=== PATIENT | male | born 1990 | race Caucasian/White ===

== ENCOUNTER 2016-11-22 07:20 | Emergency (ER) | payer SELFPAY ==
[~2016-11-22 07:20] MED LIST: Z.0.NO CURRENT MEDS
[2016-11-22 07:23] VITALS: BP 132/78; PULSE 125; RESP 18; TEMP 98.7; O2SAT 100
--- NOTE | 2016-11-22 08:02 | PD ---
HPI Chief Complaint: Pain: Acute or Chronic Time Seen by Provider: 07:39 Travel History International Travel<30 days: No Contact w/Intl Traveler<30days: No Traveled to known affect area: No History of Present Illness HPI 26-year-old male complains of left-sided chest pain, left arm pain and left leg pain left-sided abdominal pain. Patient states that the symptoms started last night. Patient working outside daily. Patient states that he has been eating drinking normally. Patient denies any recent fall the left side. Patient states the pain is sharp pain localized to left side of body. Patient denies any pain radiation. Patient states that left-sided chest pain is worse with deep breathing. Patient denies any coughing congestion fever chills. PFSH Past Medical History Medical History: Denies Significant Hx Diminished Hearing: No Tetanus Vaccination: Unknown Influenza Vaccination: No Past Surgical History Other Surgery: Yes (FACIAL PLASTIC SURGERY) Social History Alcohol Use: No Tobacco Use: Yes (1/2 PK PER DAY) Substance Use: No Allergies-Medications (Allergen,Severity, Reaction): Coded Allergies: iodine (Unverified Allergy, Severe, ANAPHYLAXIS, 11/22/16) potassium iodide (Unverified Allergy, Severe, ANAPHYLAXIS, 11/22/16) povidone-iodine (Unverified Allergy, Severe, ANAPHYLAXIS, 11/22/16) sodium iodide (Unverified Allergy, Severe, ANAPHYLAXIS, 11/22/16) sodium iodide (Unverified Allergy, Severe, ANAPHYLAXIS, 11/22/16) Reported Meds & Prescriptions Reported Meds & Active Scripts Active No Active Prescriptions or Reported Medications Review of Systems General / Constitutional: No: Fever Eyes: No: Visual changes HENT: No: Headaches Cardiovascular: Positive: Chest Pain or Discomfort Respiratory: No: Shortness of Breath Gastrointestinal: No: Abdominal Pain Genitourinary: No: Dysuria Musculoskeletal: Positive: Pain Skin: No Rash Neurologic: No: Weakness Psychiatric: No: Depression Endocrine: No: Polydipsia Hematologic/Lymphatic: No: Easy Bruising Physical Exam Narrative GENERAL: Well-nourished, well-developed patient. SKIN: Focused skin assessment warm/dry. HEAD: Normocephalic. EYES: No scleral icterus. No injection or drainage. NECK: Supple, trachea midline. No JVD or lymphadenopathy. CARDIOVASCULAR: Regular rate and rhythm without murmurs, gallops, or rubs. RESPIRATORY: Breath sounds equal bilaterally. No accessory muscle use. GASTROINTESTINAL: Abdomen soft, non-tender, nondistended. MUSCULOSKELETAL: Patient has mild diffuse tenderness over the left shoulder pad , left shoulder joint, left arm, left-sided chest wall, abdominal wall, left hip left thigh. Full range of motion all extremity. No obvious rash noted. No redness no swelling no deformity noted. BACK: Nontender without obvious deformity. No CVA tenderness. Neurologic exam normal. Data Data Last Documented VS Vital Signs Date Time Temp Pulse Resp B/P (MAP) Pulse Ox O2 Delivery O2 Flow Rate FiO2 11/22/16 07:23 98.7 125 18 132/78 (96) 100 Orders Orders Chest, Single Ap (11/22/16 07:51) Electrocardiogram (11/22/16 ) [facility] Medical Decision Making Medical Screen Exam Complete: Yes Emergency Medical Condition: Yes Interpretation(s) 08 56 AM. Chest x-ray shows no acute cardiopulmonary process. EKG shows sinus tachycardia. Rate 1:15. Incomplete right bundle branch block. Nonspecific ST- T wave change. Differential Diagnosis Differential diagnosis including dehydration, electrolyte mildly, muscular strain, rhabdomyolysis. Narrative Course 26-year-old male with left-sided body pain. Patient's working outside daily. Patient refused blood tests or IV fluid. Patient's tachycardic most likely dehydrated with possible electrolyte abnormality. Diagnosis Primary Impression: Heat cramps Qualified Codes: T67.2XXA - Heat cramp, initial encounter Patient Instructions: General Instructions Additional Instructions: Tylenol for pain. Encouraged by mouth fluids and rest. Follow-up with personal physician. Return if persistent problem or worse. Med/Other Pt SpecificInfo: No Meds Exist/No RX given Scripts No Active Prescriptions or Reported Meds Disposition: 01 DISCHARGE HOME Condition: Stable Chano Sutherland MD Nov 22, 2016 08:02
--- NOTE | 2016-11-22 08:52 | RADRPT ---
EXAM DATE/TIME: 11/22/2016 08:16 [facility] COMPARISON: No previous studies available for comparison. INDICATIONS : Chest pain. MEDICAL HISTORY : None. SURGICAL HISTORY : None. ENCOUNTER: Initial ACUITY: 1 day PAIN SCORE: 10/10 LOCATION: Left chest FINDINGS: A single view of the chest demonstrates the lungs to be symmetrically aerated without evidence of mas s, infiltrate or effusion. The cardiomediastinal contours are unremarkable. Osseous structures are intact. CONCLUSION: No acute disease. Nigel Mojica MD on November 22, 2016 at 8:50 Board Certified Radiologist. This report was verified electronically.
--- NOTE | 2016-11-22 13:10 | EKG ---
Date Performed: 11/22/2016 Time Performed: 07:59:09 PTAGE: 26 years EKG: SINUS TACHYCARDIA POSSIBLE LEFT ATRIAL ENLARGEMENT INCOMPLETE RIGHT BUNDLE BRANCH BLOCK SEP REENA MYOCARDIAL INFARCTION ABNORMAL ECG NO PREVIOUS TRACING DOCTOR: Kellie Mcrae Interpretating Date/Time 11/22/2016 13:08:07
== END 2016-11-22 09:13 | disposition home or self-care (01) ==
LOC: NEPE 07:20
DX: T67.2XXA Heat cramp, initial encounter (principal); R07.9 Chest pain, unspecified; M79.602 Pain in left arm; M79.605 Pain in left leg; R00.0 Tachycardia, unspecified; I45.10 Unspecified right bundle-branch block; R94.31 Abnormal electrocardiogram [ECG] [EKG]; F17.200 Nicotine dependence, unspecified, uncomplicated; X30.XXXA Exposure to excessive natural heat, initial encounter
CPT/HCPCS: 71010; 93005; 99284